=== PATIENT | female | born 1970 | race Caucasian/White ===

== ENCOUNTER → 2016-10-13 | Outpatient (CLI) | payer BC ==
--- NOTE | 2016-10-13 08:33 | RAD ---
EXAM DESCRIPTION: XR KNEE 4 OR MORE VIEWS; XR PELVIS 1-2 VIEWSXR KNEE 4 OR MORE VIEWS; XR PELVIS 1-2 VIEWS CLINICAL HISTORY: 46 y/o ,F, LEFT KNEE PAIN; HIP PAIN COMPARISON: None. IMPRESSION: Single-view of the pelvis demonstrate symmetrical unremarkable hip joint spaces. Pelvic ring is intact. No osseous lesion noted. Three views of the left knee demonstrate near complete joint space loss of the medial compartment compatible with advanced degenerative change. Small joint effusion noted period osteophytes seen along the inferior and superior pole of patella. Lateral compartment is unremarkable. No left knee fracture. No osseous lesion. Electronically signed by: Hever Hall MD 10/13/2016 08:32
== END ==
LOC: RAD 07:37
PROVIDERS: ATTEND Orthopaedic Surgery
DX: M25.562 Pain in left knee (principal); M25.552 Pain in left hip; M12.862 Other specific arthropathies, not elsewhere classified, left knee

== ENCOUNTER → 2017-02-23 | Outpatient (CLI) | payer BC | END | disposition home or self-care (01) | LOC: LAB.O 07:04 | PROVIDERS: ATTEND Emergency Medicine | DX: Z00.00 Encounter for general adult medical examination without abnormal findings (principal); R53.83 Other fatigue; Z13.1 Encounter for screening for diabetes mellitus ==

== ENCOUNTER → 2017-03-28 | Outpatient (CLI) | payer BC, OTHER ==
--- NOTE | 2017-03-29 14:41 | MAM ---
EXAM DESCRIPTION: Screening Mammogram, bilateral CLINICAL HISTORY: 46 yearsFemaleSCREENING. COMPARISON: Digital screening bilateral examinations 03/25/2016 and 02/20/2015.. No prior reports available. TECHNIQUE: Bilateral CC and MLO projection full-field images, digital screening mammographic technique. CAD was utilized. FINDINGS: The breast parenchymal density pattern is: Scattered areas of fibroglandular density. No skin thickening or nipple retraction bilateral scan and microcalcifications in the parenchyma. Groups of microcalcifications in the upper outer quadrant of the anterior half of the left breast. No focal, stellate mass or density, focal asymmetry , and no suspicious microcalcifications bilaterally. Stable mammograms compared to prior study February 2015. IMPRESSION: BI-RADS CATEGORY: 2 - BENIGN FINDINGS. FOLLOW UP: Routine digital bilateral screening, one year interval from March 2017. Written communication explaining the findings and follow-up, will be mailed to the patient and referring health care provider. According to the [employer], yearly mammograms are recommended starting at age 40 and continuing as long as a woman is in good health. Any breast change noted on a breast self-exam should be reported promptly to the patient's healthcare provider. Breast MRI is recommended for women with an approximately 20-25% or greater lifetime risk of breast cancer, including women with a strong family history of breast or ovarian cancer and women who have been treated for Hodgkin's disease. A negative mammographic report should not delay tissue diagnosis in patients with significant clinical history or physical findings. Extremely dense breast tissue limits the sensitivity of digital mammography. Electronically signed by: Leobardo Woodard MD 03/29/2017 2:40 PM CDT Workstation: [id number]
== END ==
LOC: MAMMO 13:30
PROVIDERS: ATTEND Emergency Medicine
DX: Z12.31 Encounter for screening mammogram for malignant neoplasm of breast (principal)

== ENCOUNTER → 2018-05-17 | Outpatient (CLI) | payer BC ==
--- NOTE | 2018-05-18 10:19 | MAM ---
EXAM DESCRIPTION: 3D Screening BILATERAL : Digital Mammography. CLINICAL HISTORY: 48 years Female SCREENING . No personal history or family history of breast cancer. Childbirth. Hysterectomy. HRT 5 or more years ago.. Lifetime risk of developing breast cancer (Tyrer-Cuzick model) is 6.8 %. COMPARISON: 2-D digital screening bilateral study 03/28/2017. TECHNIQUE: Bilateral CC and MLO projection full-field images, Digital tomosynthesis mammographic technique. Bilateral digital 2-D full-field MLO images. CAD not utilized. FINDINGS: The breast parenchymal density pattern is: Scattered areas of fibroglandular density. No skin thickening or nipple retraction. Bilateral solitary microcalcifications. No new focal, stellate mass or density, focal asymmetry , and no suspicious microcalcifications bilaterally. Stable mammograms compared to prior study. Taking into account, differences in mammographic technique. IMPRESSION: Benign exam BIRAD CATEGORY: 2 BENIGN FINDINGS RECOMMENDATIONS: FOLLOW UP: Routine digital bilateral screening, one year interval from April 2018. Written communication explaining the IMPRESSION and follow-up, will be mailed to the patient and referring health care provider. According to the [employer], yearly mammograms are recommended starting at age 40 and continuing as long as a woman is in good health. Any breast change noted on a breast self-exam should be reported promptly to the patient's healthcare provider. Breast MRI is recommended for women with an approximately 20-25% or greater lifetime risk of breast cancer, including women with a strong family history of breast or ovarian cancer and women who have been treated for Hodgkin's disease. A negative mammographic report should not delay tissue diagnosis in patients with significant clinical history or physical findings. Extremely dense breast tissue limits the sensitivity of digital mammography. Electronically signed by: Leobardo Woodard MD 05/18/2018 10:18 AM CDT
== END ==
LOC: MAMMO 09:00
PROVIDERS: ATTEND Obstetrics & Gynecology
DX: Z12.31 Encounter for screening mammogram for malignant neoplasm of breast (principal)

== ENCOUNTER → 2018-08-07 | Outpatient (CLI) | payer BC | LOC: LAB.O 16:34 | PROVIDERS: ATTEND Internal Medicine Hematology & Oncology | DX: D68.59 Other primary thrombophilia (principal) ==